=== PATIENT | male | born 1950 | race Caucasian/White ===

== ENCOUNTER 2016-08-11 20:43 | Emergency (ER) | payer MEDICAID ==
[~2016-08-11] VITALS: Ht 182.9 cm; Wt 81.6 kg
[~2016-08-11 20:43] MED LIST: BACL10TA GT; BISA-79 RC; DEXT1CAP3 GT; HYDR-3326 GT; INSU100V7 SQ; METO25TA20 GT; NA P133E RC; RIVA10TA GT; SENN8.6C5 PO; TYL2T GT; VALP250C GT
--- NOTE | 2016-08-11 21:31 | NUR ---
PT "SPIT UP BLOOD X2 AND SENT BY [facility] FROM [facility]". PLACED PT ON MONITOR. VSS. AWAITING MD ORDER
[2016-08-11] MEDS ORDERED: IV NS 0.9% 500 ML IV ONE (21:47)
[2016-08-11] MEDS ORDERED: IV SET PRIMARY PUMP SET 1 EA INFUS.SET MC ONE (21:47)
--- NOTE | 2016-08-11 21:55 | NUR ---
RAC #[id number] IV ACCESS BLOOD SAMPLE COLLECTED SENT TO LAB
[2016-08-11] MEDS ORDERED: IV NS 0.9% 500 ML BAG IV ONE (22:00)
--- NOTE | 2016-08-11 22:02 | NUR ---
XRAY AT BEDSIDE
[2016-08-11 22:09] LABS: BASOPHILS % (AUTO) 0.2 % (0.0-2.0); EOSINOPHILS # (AUTO) 0.2 /CMM (0.0-0.7); EOSINOPHILS % (AUTO) 2.4 % (0.0-6.0); HEMATOCRIT 42 % (39-51); HEMOGLOBIN 13.6 g/dL (13.5-17.5); LYMPHOCYTES # (AUTO) 2.7 /CMM (0.8-4.8); LYMPHOCYTES % (AUTO) 28.7 % (20.0-44.0); MEAN CORPUSCULAR HEMOGLOBIN 29 PG (26.0-33.0); MEAN CORPUSCULAR HGB CONC 33 g/dl (31.0-36.0); MEAN CORPUSCULAR VOLUME 88 fL (80-96); MONOCYTES # (AUTO) 0.8 /CMM (0.1-1.30); MONOCYTES % (AUTO) 8.7 % (2.0-12.0); NEUTROPHILS # (AUTO) 5.7 /CMM (1.8-8.9); PLATELET COUNT (AUTO) 224 /CMM (150-450); RDW COEFFICIENT OF VARIATION 14.7 (11.5-15.0); RED BLOOD CELL COUNT(AUTO) 4.69 MIL/uL (4.5-6.0); WHITE BLOOD COUNT (AUTO) 9.4 K/uL (4.3-11.0)
[2016-08-11 22:22] LABS: INR 1.01 (0.87-1.13); PROTHROMBIN TIME 10.8 SECS (9.5-12.7)
[2016-08-11 22:29] LABS: ALBUMIN 3.2 g/dL (3.4-5.0); BILIRUBIN,DIRECT 0.1 mg/dL (0.0-0.2); BILIRUBIN,TOTAL 0.4 mg/dL (0.2-1.0); CALCIUM, SERUM 8.6 mg/dL (8.5-10.1); CREATININE 0.9 mg/dL (0.6-1.3); POTASSIUM 4.4 mmol/L (3.5-5.1); TOTAL PROTEIN, SERUM 7.3 g/dL (6.4-8.2)
[2016-08-11 22:35] LABS: TROPONIN I 0.021 ng/mL (0.00-0.056)
--- NOTE | 2016-08-11 23:00 | NUR ---
[facility]
[2016-08-11 23:04] VITALS: BP 98/58
--- NOTE | 2016-08-11 23:05 | NUR ---
Patient discharged to home in stable condition. Written and verbal after care instructions given. Patient verbalizes understanding of instruction.
[2016-08-11] MEDS ORDERED: LORAZEPAM 1 MG TABLET ONE (23:18)
--- NOTE | 2016-08-11 23:23 | NUR ---
GAVE REPORT TO LEI CORTEZ
[2016-08-11] MEDS ORDERED: LORAZEPAM 1 MG TABLET PO ONE (23:30)
--- NOTE | 2016-08-12 00:20 | NUR ---
IV removed. Catheter intact and site benign. Pressure and 4x4 applied to site. No bleeding noted.
--- NOTE | 2016-08-12 01:09 | NUR ---
Patient discharged by ambulance for transport to SNF in stable condition. 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 VSS, NAD noted on DC back to SNF.
== END 2016-08-12 01:09 ==
LOC: ER 20:44
DX: S02.5XXA Fracture of tooth (traumatic), initial encounter for closed fracture (principal); E11.9 Type 2 diabetes mellitus without complications; I10 Essential (primary) hypertension; I48.91 Unspecified atrial fibrillation; K21.9 Gastro-esophageal reflux disease without esophagitis; N40.0 Benign prostatic hyperplasia without lower urinary tract symptoms; Z86.73 Personal history of transient ischemic attack (TIA), and cerebral infarction without residual deficits; Z79.4 Long term (current) use of insulin; Z95.2 Presence of prosthetic heart valve; X58.XXXA Exposure to other specified factors, initial encounter; Y92.89 Other specified places as the place of occurrence of the external cause; Y93.89 Activity, other specified; Y99.8 Other external cause status
CPT/HCPCS: 36415; 71010; 80048; 80076; 83690; 84484; 85025; 85730; 86850; 99285; A4606; J7040; Z7610

== ENCOUNTER 2016-11-04 13:35 | Emergency (ER) | payer MEDICAID ==
[~2016-11-04] VITALS: Ht 185.4 cm; Wt 104.3 kg
--- NOTE | 2016-11-04 13:48 | NUR ---
PT BIB PA FOR DISLODGED G-TUBE. NOTED WITH SANCHEZ IN STOMA AND DRESSING IN PLACE. NAD NOTED. NO OTHER COMPLAINTS. IN ER BED 09.
--- NOTE | 2016-11-04 14:21 | NUR ---
20FR GTUBE REPLACED BY ; AWAITING KUB FOR PLACEMENT VERIFICATION.
[2016-11-04] MEDS ORDERED: DIATR MEGLU/DIATRIZOATE SODIUM 30 ML BOTTLE (GASTROGRAPHIN) ONE (14:26)
[2016-11-04] MEDS ORDERED: DIATR MEGLU/DIATRIZOATE SODIUM 120 ML BOTTLE (GASTROGRAPHIN) PO ONE (14:30)
--- NOTE | 2016-11-04 14:37 | NUR ---
XRAY AT BEDSIDE FOR KUB
--- NOTE | 2016-11-04 15:13 | NUR ---
CALLED [facility] FOR TRANSPORT ETA 20 MINUTES
[2016-11-04 15:38] VITALS: BP 108/44
--- NOTE | 2016-11-04 15:38 | NUR ---
Patient discharged to SNF in stable condition. Written and verbal after care instructions given. Patient verbalizes understanding of instruction.
== END 2016-11-04 15:38 ==
LOC: ER 13:39
DX: K94.23 Gastrostomy malfunction (principal); E11.9 Type 2 diabetes mellitus without complications; F41.9 Anxiety disorder, unspecified; I10 Essential (primary) hypertension; I48.91 Unspecified atrial fibrillation; K21.9 Gastro-esophageal reflux disease without esophagitis; N40.0 Benign prostatic hyperplasia without lower urinary tract symptoms; Z79.01 Long term (current) use of anticoagulants; Z79.4 Long term (current) use of insulin; Z86.73 Personal history of transient ischemic attack (TIA), and cerebral infarction without residual deficits; Z95.2 Presence of prosthetic heart valve; Z93.1 Gastrostomy status
CPT/HCPCS: 74000-TC; A4606; Q9963; Z7610

== ENCOUNTER 2016-11-05 10:21 | Emergency (ER) | payer MEDICAID ==
[~2016-11-05] VITALS: Ht 185.4 cm; Wt 104.3 kg
--- NOTE | 2016-11-05 10:40 | NUR ---
PT BIB PA FOR DISLODGED G-TUBE. NOTED WITH GT IN STOMA AND DRESSING IN PLACE. NAD NOTED. NO OTHER COMPLAINTS. IN ER BED 01.
--- NOTE | 2016-11-05 10:41 | NUR ---
GT REPLACED WITH F20/6MM.PLACEMENT VERIFIED BY TWO RNS
--- NOTE | 2016-11-05 10:41 | NUR ---
GASTRIC CONTENTS NOTED UPON ASPIRATING, CONFIRMED WITH ELIAS SPANN
--- NOTE | 2016-11-05 10:43 | NUR ---
PT DISCHARGED. WAS TRANSPORTED BY SAME [facility] WHO BROUGHT PATIENT
--- NOTE | 2016-11-05 10:43 | NUR ---
PT DC BACK TO FACILITY, GT PLACEMENT INTACT, BALLOON INTACT, COVERED WITH GAUZE AND SECURELY PLACED. INSTRUCTED PT REGARDING CONSEQUENCES OF PULLING OUT GTUBE, PT VERBALIZED UNDERSTANDING. DC PAPERS GIVEN. NO FURTHER COMPLAINTS.
[2016-11-05 10:45] VITALS: BP 121/69
== END 2016-11-05 10:46 | disposition home or self-care (01) ==
LOC: ER 10:23
DX: Z43.1 Encounter for attention to gastrostomy (principal); E11.9 Type 2 diabetes mellitus without complications; F03.90 Unspecified dementia, unspecified severity, without behavioral disturbance, psychotic disturbance, mood disturbance, and anxiety; F41.9 Anxiety disorder, unspecified; I10 Essential (primary) hypertension; F39 Unspecified mood [affective] disorder; G81.91 Hemiplegia, unspecified affecting right dominant side; I48.91 Unspecified atrial fibrillation; K21.9 Gastro-esophageal reflux disease without esophagitis; N40.0 Benign prostatic hyperplasia without lower urinary tract symptoms; Z79.4 Long term (current) use of insulin; Z86.73 Personal history of transient ischemic attack (TIA), and cerebral infarction without residual deficits; Z95.2 Presence of prosthetic heart valve
CPT/HCPCS: 43760; 99284; A4606; Z7610

== ENCOUNTER 2018-01-29 13:38 | Emergency (ER) | payer MEDICAID ==
[~2018-01-29] VITALS: Ht 180.3 cm; Wt 95.3 kg
[2018-01-29 13:38] VITALS: BP 128/70
[~2018-01-29 13:38] MED LIST changes: -HYDR-3326 GT; +HYDR-3974 GT
[2018-01-29] MEDS ORDERED: DIATR MEGLU/DIATRIZOATE SODIUM 30 ML BOTTLE (GASTROGRAPHIN) ONE (13:54)
== END 2018-01-29 14:26 ==
LOC: ER 13:39
DX: K94.20 Gastrostomy complication, unspecified (principal); I10 Essential (primary) hypertension; I48.91 Unspecified atrial fibrillation; K21.9 Gastro-esophageal reflux disease without esophagitis; N40.0 Benign prostatic hyperplasia without lower urinary tract symptoms; E11.9 Type 2 diabetes mellitus without complications; F41.9 Anxiety disorder, unspecified; F39 Unspecified mood [affective] disorder; Z86.73 Personal history of transient ischemic attack (TIA), and cerebral infarction without residual deficits; Z79.4 Long term (current) use of insulin; Z79.899 Other long term (current) drug therapy; Z95.818 Presence of other cardiac implants and grafts
CPT/HCPCS: 43760; 74018; 99284; A4606; Q9963; Z7610